=== PATIENT | female | born 1930 | race Caucasian/White ===

== ENCOUNTER 2017-11-02 11:50 | Observation (INO) | payer MEDICARE, BC ==
[2017-11-01 11:18] VITALS: BMI 22.4
[2017-11-02 13:09] LABS: #Eosinphils 0.1 thou/uL (0.0-0.7); #Lymphocytes 2.1 thou/uL (1.20-3.40); #Neutrophils 5.4 thou/uL (1.40-6.50); %Basophils 0.5 % (0.0-1.0); %Eosinophils 0.8 % (0.0-10.0); %Lymphocytes 24.3 % (21.0-51.0); %Monocytes 11.7 % (0.0-10.0); %Neutrophils 62.7 % (42.0-75.0); Mean Corpuscular HGB CONC 32.5 g/dL (32.0-36.0); Mean Corpuscular Hemoglobin 29.4 pg (27.0-31.0); Mean Corpuscular Volume 90.4 fl (81.0-99.0); Mean Platelet Volume 6.8 fL (7.4-10.4); Platelet Count 296 thou/uL (130-400); RBC Distribution Width 15.4 % (11.5-14.5); Red Blood Cell (RBC) Count 4.09 mill/uL (4.20-5.40); White Blood Cell (WBC) Count 8.5 thou/uL (4.8-10.8)
[2017-11-02 13:17] LABS: INR-International Normal Ratio 1.1; PTT 23.1 SEC (22.9-36.1); Prothrombin Time 13.9 SEC (12.0-14.7)
--- NOTE | 2017-11-02 13:24 | RAD ---
PORTABLE CHEST ONE VIEW: Date: 11-02-17 Time: 12:46 p.m. History: Chest pain. FINDINGS: There are changes of median sternotomy. The heart size is normal. The aorta is tortuous. The lungs ar e expanded without focal areas of consolidation, pneumothorax, or pleural effusions. There are old ri ght sided rib fractures. IMPRESSION: No radiographic evidence of acute cardiopulmonary process. POS: [facility]
[2017-11-02 13:46] LABS: Anion Gap 13 mmol/L (10-20); BUN (Urea Nitrogen) 17 mg/dL (9.8-20.1); Calc. Creatinine Clearance 44 mL/min (70-130); Calcium 9.7 mg/dL (7.8-10.44); Carbon Dioxide 27 mmol/L (23-31); Chloride 103 mmol/L (98-107); Estimated GFR-MDRD 55; Glucose 110 mg/dL (83-110); Potassium 4.4 mmol/L (3.5-5.1); Sodium 139 mmol/L (136-145)
[2017-11-02] MEDS ORDERED: CEFAZOLIN/Water 2 GM/20 ML SYRINGE ONE (13:48)
[2017-11-02] MEDS ORDERED: Fentanyl 250 MCG/5 ML VIAL ONE ×2 (13:56→17:29)
[2017-11-02] MEDS ORDERED: Ondansetron HCl/PF 4 MG/2 ML Vial ONE ×2 (13:57→17:11)
[2017-11-02] MEDS ORDERED: Bupivacaine/Epinephrine 0.25% 30 ML VIAL ONE (14:44)
[2017-11-02] MEDS ORDERED: Lidocaine 1% PF 5 ML VIAL ONE (17:11)
[2017-11-02] MEDS ORDERED: Glycopyrrolate 0.2 MG/ML 5 ML SYRINGE ONE (17:11)
[2017-11-02] MEDS ORDERED: Dexamethasone 20 MG/5 ML VIAL ONE (17:11)
[2017-11-02] MEDS ORDERED: Propofol 200 MG/20 ML VIAL ONE (17:11)
--- NOTE | 2017-11-02 17:43 | RAD ---
LEFT ELBOW TWO VIEWS INTRAOPERATIVE FLUOROSCOPY 11/02/17 HISTORY: Fracture. FINDINGS/IMPRESSION: Intraoperative fluoroscopy was provided for internal fixation as performed by Dr. De La Cruz. Spot fluor oscopic images show posterior compression plate and multiple screws to transfix the olecranon, in amaya tomic alignment. Fluoro time equals 45 seconds. POS: [facility]
--- NOTE | 2017-11-02 18:00 | OP ---
DATE OF PROCEDURE: 11/02/2017 PREOPERATIVE DIAGNOSIS: Left displaced olecranon fracture. POSTOPERATIVE DIAGNOSIS: Left displaced olecranon fracture. PROCEDURE: Open reduction internal fixation of left olecranon fracture. SURGEON: Matthew De La Cruz MD ANESTHESIA: General. TOURNIQUET TIME: 120 minutes at 250 mmHg. ESTIMATED BLOOD LOSS: 100 mL DRAINS: None. SPECIMENS: None. COMPLICATIONS: None. OPERATIVE INDICATIONS: The patient is a pleasant 87-year-old female who sustained a ground level fal l at home onto her elbow. She had a displaced comminuted intra-articular olecranon fracture on the l eft side. Risks and benefits were reviewed in detail with the patient and today which includ ed, but not limited to, continued pain, wound complications, infection, nonunion, malunion or implant failure. Written consent was obtained. DESCRIPTION OF PROCEDURE: The patient's left upper extremity was marked in the preoperative holding area. She was transferred to the operative suite in a supine position where general anesthesia was i nduced. She was transitioned to a right lateral decubitus position with assistance of a beanbag. Ax illary roll was placed and all bony prominences were well padded. We utilized on elevated arm hills for her left arm throughout the case. Her arm was placed into an upper arm tourniquet and was prepr epped with alcohol swabs. Left upper extremity was then prepped and draped in the usual sterile fash ion. After application of Esmarch dressing, tourniquet was insufflated. A longitudinal incision was made on the posterior aspect of her left arm extending from just proximal to her elbow to 6 cm distal. The incision curved radially around the tip of the olecranon. Full ickness skin flaps were developed and elevated in the medial and lateral direction maintaining carefu l hemostasis. We then manually palpated the fracture site distracted through this removing all loose debris and remaining hematoma. We then elevated the fascia distally extraperiosteally off the ulna. Once the fracture site had been completely cleaned and irrigated, we then manually reduced the frac ture with the arm in near extension and placed 2 K wires from proximal to distal, for fixation. Next , we split the triceps in the center of its insertion in order to fully seat our olecranon plate. Th is was then fully seated and held in place with K wires. Provisional fixation was utilized using one distal 3.5 mm screw and a proximal 2.7 mm locking screw. We then utilized intraoperative fluoroscop y in AP, oblique, and lateral views to confirm our reduction as well as concentric nature of the join t surface. There were several less than 3 x 3 mm bony fragments removed some with articular cartilag e from the fracture site. In order to obtain an anatomic reduction posteriorly, there was gapping at the fracture site due to the removed comminution. The remaining proximal locking holes were then fi lled followed by the distal cortical screws. The arm was placed through a full range of motion witho ut any displacement at the fracture site or any intra-articular disruption. Final x-rays were obtain ed. The wound was then copiously irrigated with sterile saline. The triceps fascia was then closed over the proximal portion of the plate. The skin was then closed meticulously in layered fashion wit h 2-0 Vicryl and interrupted 3-0 nylon sutures. A 17 mL of Marcaine 0.25% with epinephrine were inje cted subcutaneously throughout the incision. Xeroform, dry dressings and a posterior splint with the arm at 90 degrees were then applied. General anesthesia was removed, and she was transported to [facility] in good condition. POSTOPERATIVE PLAN: The patient will be nonweightbearing left upper extremity. She will be in the s plint for 2 weeks followed by suture removal and progressive range of motion. She was discharged on Tylenol #3 and Zofran.
[2017-11-02] MEDS ORDERED: Acetaminophen/Codeine 30-300mg Tablet PO PRN (20:44)
[2017-11-02] MEDS ORDERED: Ondansetron ODT 4 MG TAB PO PRN (20:45)
[2017-11-02] MEDS ORDERED: Ondansetron ODT 8 MG TAB PO PRN (20:46)
[2017-11-02] MEDS ORDERED: Morphine 2 MG/ML SYRINGE SLOW IVP PRN ×2 (20:48)
[2017-11-02] MEDS: Lactated Ringer's 1,000 ML IV SCH (21:12)
[2017-11-02] MEDS ORDERED: CEFAZOLIN/Water 2 GM/20 ML SYRINGE SLOW IVP SCH (22:00)
[2017-11-03] MEDS: Acetaminophen/Codeine 30-300mg Tablet PO PRN ×2 (01:11→08:00)
[2017-11-03] MEDS: Lactated Ringer's 1,000 ML IV SCH (05:49)
[2017-11-03 07:22] VITALS: BP 141/67; TEMP 98.4
[2017-11-03] MEDS ORDERED: Prevnar 13-Val Conj/PF 0.5 ML SYRINGE IM ONE (09:00)
[2017-11-03] MEDS ORDERED: FLU VACC TS2017-18 (>65YR) 0.5 ML SYRINGE IM ONE (09:00)
== END 2017-11-03 10:16 | disposition home or self-care (01) ==
LOC: SDC 11:50 → SURG A 18:33
PROVIDERS: ADMIT Orthopaedic Surgery; ATTEND Orthopaedic Surgery
PROC: 0PSL04Z Reposition Left Ulna with Internal Fixation Device, Open Approach (ICD-10-PCS; principal; 2017-11-02)
DX: S52.022A Displaced fracture of olecranon process without intraarticular extension of left ulna, initial encounter for closed fracture (principal); E78.5 Hyperlipidemia, unspecified; E03.9 Hypothyroidism, unspecified; I48.2 Chronic atrial fibrillation; I25.10 Atherosclerotic heart disease of native coronary artery without angina pectoris; W18.30XA Fall on same level, unspecified, initial encounter; Y92.009 Unspecified place in unspecified non-institutional (private) residence as the place of occurrence of the external cause; Z79.01 Long term (current) use of anticoagulants; Z79.899 Other long term (current) drug therapy; Z88.8 Allergy status to other drugs, medicaments and biological substances; Z95.1 Presence of aortocoronary bypass graft; Z90.49 Acquired absence of other specified parts of digestive tract
CPT/HCPCS: 24685; 71045; 73070; 76001; 80048; 85025; 85610; 85730; 96374; 96375; C1713 ×2; G0008; G0378; Q2036; 36415; 90471; 90682; J0131; J1100; J2001; J2270; J2405; J2704; J3010

== ENCOUNTER 2018-02-15 22:21 | Inpatient (IN) | payer MEDICARE, BC ==
[~2018-02-15 22:21] MED LIST: ISOVUE-370 76%-LOCM 1 ML ONE
[2018-02-15 23:04] LABS: Bilirubin Negative (Negative); Blood, Urine Moderate (Negative); Clarity CLEAR (Clear); Glucose, Urine (Dipstick) 250 mg/dL (Negative); Leukocyte Trace (Negative); Nitrite Negative (Negative); Protein, Urine (Dipstick) 30 mg/dL (Neg-Trace); Specific Gravity, Urine 1.012 (1.002-1.036); Urobilinogen 0.2 mg/dL (0.2-1.0)
[2018-02-15 23:05] LABS: Bacteria/HPF None Seen HPF (None Seen); Hyaline Casts/LPF 0-3 HYALINE CAST LPF (0-3 Hyaline); Squamous Epithelial 0-3 HPF (0-3); WBC/HPF 0-3 HPF (0-3)
--- NOTE | 2018-02-15 23:23 | RAD ---
RADIOGRAPH CHEST 1 VIEW: 02/15/18 HISTORY: 87-year-old female with generalized weakness. FINDINGS: There are no air space densities, pulmonary edema, pneumothorax, or cardiomegaly. The lateral costop hrenic angles are sharp. IMPRESSION: 1. No acute cardiopulmonary findings. 2. Signs of previous coronary artery bypass graft surgery is evidence for coronary atherosclerot ic disease. 3. Several old right upper lateral healed rib fracture deformities. spike [] POS: [facility]
--- NOTE | 2018-02-15 23:41 | CT ---
CT BRAIN NONCONTRAST: 02/15/18 HISTORY: 87-year-old female with altered mental status and generalized weakness. FINDINGS: There is no midline shift or any other mass effect. There is no evidence of acute intracranial hemor rhage, large cortical infarct, obstructive hydrocephalus, or extraaxial fluid collection. The calvar ium is intact. There is diffuse parenchymal volume loss. There are low attenuation areas in the whi te matter. These are nonspecific, but in a patient of this age, they are probably chronic ischemic w joo matter changes due to microvascular atherosclerosis. IMPRESSION: 1) No acute intracranial findings. 2) Involutional changes and chronic ischemic white matter changes. jn [] POS: [facility]
[2018-02-16 00:15] LABS: #Basophils 0.1 thou/uL (0.0-0.2); #Eosinphils 0.1 thou/uL (0.0-0.7); #Lymphocytes 2.6 thou/uL (1.20-3.40); #Monocytes 1.7 thou/uL (0.11-0.59); #Neutrophils 9.7 thou/uL (1.40-6.50); %Eosinophils 0.6 % (0.0-10.0); %Lymphocytes 18.1 % (21.0-51.0); %Monocytes 12.1 % (0.0-10.0); %Neutrophils 68.3 % (42.0-75.0); Hemoglobin 14.5 g/dL (12.0-16.0); Mean Corpuscular HGB CONC 33.2 g/dL (32.0-36.0); Mean Corpuscular Hemoglobin 28.7 pg (27.0-31.0); Mean Corpuscular Volume 86.2 fL (78.0-98.0); Mean Platelet Volume 6.3 fL (7.4-10.4); Platelet Count 270 thou/uL (130-400); RBC Distribution Width 14.6 % (11.5-14.5); Red Blood Cell (RBC) Count 5.05 mill/uL (4.20-5.40); White Blood Cell (WBC) Count 14.2 thou/uL (4.8-10.8)
[2018-02-16 00:36] LABS: ALT (SGPT) 9 U/L (8-55); AST (SGOT) 18 U/L (5-34); Albumin 3.8 g/dL (3.4-4.8); Alkaline Phosphatase 94 U/L (40-150); Anion Gap 11 mmol/L (10-20); BUN (Urea Nitrogen) 18 mg/dL (9.8-20.1); Bilirubin, Total 1.7 mg/dL (0.2-1.2); CK (CPK) 36 U/L (29-168); Calc. Creatinine Clearance 0 mL/min (70-130); Calcium 8.4 mg/dL (7.8-10.44); Carbon Dioxide 28 mmol/L (23-31); Chloride 84 mmol/L (98-107); Estimated GFR-MDRD 61; Globulin 3.3 g/dL (2.4-3.5); Glucose 163 mg/dL (83-110); Lipase 31 U/L (8-78); Protein, Total 7.1 g/dL (6.0-8.3)
[2018-02-16 00:38] LABS: CKMB 2.2 ng/mL (0-6.6); Troponin I Less than 0.010 ng/mL (< 0.028)
[2018-02-16 00:41] LABS: Sodium 119 mmol/L (136-145)
[2018-02-16] MEDS ORDERED: Labetalol HCl 100 MG/20 ML VIAL ONE (02:49)
[2018-02-16] MEDS ORDERED: Acetaminophen 650 MG Suppository PR PRN (04:38)
[2018-02-16] MEDS ORDERED: Bisacodyl 5 MG TAB PO PRN (04:38)
[2018-02-16] MEDS ORDERED: Acetaminophen 325 MG TAB PO PRN (04:38)
[2018-02-16] MEDS ORDERED: Ondansetron ODT 4 MG TAB PO PRN (04:40)
[2018-02-16 05:35] LABS: Anion Gap 13 mmol/L (10-20); Carbon Dioxide 27 mmol/L (23-31); Chloride 89 mmol/L (98-107); Potassium 3.9 mmol/L (3.5-5.1); Sodium 125 mmol/L (136-145)
[2018-02-16] MEDS: Levothyroxine Sodium 75 MCG TAB PO SCH (05:40)
[2018-02-16 05:49] VITALS: BMI 20.9
--- NOTE | 2018-02-16 06:47 | CT ---
CT ABDOMEN WITH CONTRAST CT PELVIS WITH CONTRAST: DATE: 02/15/2018 TIME: 11:41 p.m. HISTORY: An 87-year-old female with generalized abdominal pain. COMPARISON: None. FINDINGS: Heavy atherosclerotic calcification of the abdominal aorta and the iliac arteries without aneurysm. A few small and tiny bilateral renal calculi, ranging from 2 to 4 mm. No hydronephrosis. Renal pare nchymal defect at the right posterior lower pole, consistent with scar from previous insult. No jennifer r pathology identified involving the pancreas, the adrenals, the liver, the spleen, or the urinary bl adder. Pelvic relaxation. Atrophic uterus. No evidence of acute colonic diverticulitis. A 2.5 x 2 cm, thin-walled right adnexal cyst versus a fluid-filled loop of bowel. No free fluid or free air w ithin the abdominal cavity or pelvic cavity. No signs of acute colonic diverticulitis. No small bow el dilation. Appendix not identified. No consolidation or pleural effusion at the lung bases. IMPRESSION: 1. No acute findings. 2. Bilateral nephrolithiasis without obstructive uropathy. 3. Right renal lower pole parenchymal scar from prior insult. 4. Atherosclerosis of the abdominal aorta and the iliac arteries. 5. Pelvic relaxation. 6. Right adnexal possible cyst. Consider [address] with contrast. NANCY Vaughn POS: [facility]
[2018-02-16 07:58] LABS: Hemoglobin 14.5 g/dL (12.0-16.0); Platelet Count 266 thou/uL (130-400)
--- NOTE | 2018-02-16 09:18 | CON ---
DATE OF CONSULTATION: 02/16/2018 HISTORY OF PRESENT ILLNESS: Ms. Tamayo is an 87-year-old white female who was admitted for confusi on. Initial evaluation with the patient showed a normal CT scan of the head. This morning, she is more coherent. We are being consulted for her hyponatremia. At the ER, she was felt that she was volume depleted and she was given a liter of normal saline. With this maneuver, h er serum sodium was improved to the most recent value of 125. We are now being consulted for further management of the hyponatremia. REVIEW OF SYSTEMS: No chest pain. Positive for facial pain. No nausea, no vomiting, no diarrhea, d ecreased p.o. intake, decreased energy level. No diarrhea, no gross hematuria, no dysuria, no urinar y frequency, no abdominal pain, no headache. Occasional joint pains. No new skin rash, no fever or chills. PAST MEDICAL HISTORY: Includes, atrial fibrillation, coronary artery disease, hypothyroidism, recent diagnosis of shingles. PAST SURGICAL HISTORY: 1. Status post left elbow surgery. 2. Status post stent placement to the right leg. 3. Status post cardiac catheterization. 4. Status post CABG. 5. Status post tonsillectomy. 6. Status post colonoscopy. HOME MEDICATIONS: Include Valtrex 500 mg tab t.i.d., levothyroxine 75 mcg daily, Eliquis 2.5 mg b.i. d., metoprolol succinate 50 mg daily, Zofran p.r.n. ALLERGIES: PREDNISONE?, STATINS - adverse reaction. TRAUMA: Status post left elbow fracture. IMMUNIZATIONS: Up to date. HOSPITALIZATION: Please see past medical history. FAMILY HISTORY: Noncontributory. SOCIAL HISTORY: The patient is , 3 children, lives in [place]. Housewife. Education: High sc hool. Currently, no smoking, no alcohol intake, no IV drug abuse. Denies any blood transfusion ?. Sedentary lifestyle. PHYSICAL EXAMINATION: VITAL SIGNS: Blood pressure is 158/70, heart rate 92, respiratory rate 16, temperature 98.6, pulse o x 94%. GENERAL: Noted to be awake, alert, comfortable, not in overt distress. SKIN: Adequate turgor. HEENT: She has pinkish conjunctivae, anicteric sclerae. NECK: No neck mass, no carotid bruits, no JVD. CHEST: No deformities. LUNGS: Clear breath sounds. No wheezing, no crackles. HEART: Normal sinus rhythm. No murmur, no gallops or rubs. ABDOMEN: Globular, soft, nontender, no masses. EXTREMITIES: No edema, no deformities. NEUROLOGIC: Awake, oriented to 3 spheres. Moving all extremities. No tremors, no asterixis, no marci gage. LABORATORY DATA: Hemoglobin 14.5. On 02/16/2018 at 1:05 a.m., serum sodium was 119. On 02/16/2018 at 5:13 a.m., sodium 125, potassium 3.9, chloride 89, carbon dioxide 27, creatinine 0.93, GFR 57 mL p er minute. TSH 2.7. Urinalysis 02/15/2018, specific gravity 1.012. Protein is 30. Urine glucose 2 50, RBC 11-20, WBC 0-3. IMAGING: CT scan of the abdomen and pelvis on 02/15/2018 showed no acute findings - bilateral nephrolithiasis without obstruction, right renal lower pole parenchymal scar, finding on pe lvic relaxation. ASSESSMENT AND PLAN: Hyponatremia - with a history of decreased p.o. intake and decreased fluid inta ke, possibility that this could be hypovolemic hyponatremia remains. The thing that suggest hypovole lavonne hyponatremia is that she was given 1 liter of normal saline and the serum sodium improved from 11 9-125. For this reason, we will try to maintain her normal saline at 75 mL per hour. I am less inclined towards a dilutional hyponatremia due to the fact that the patient has decreased p .o. intake and my exam suggests that she is a bit on the dehydrated side. We will recheck another [facility] metabolic panel later today. I feel that the hyponatremia is most likely acute in nature suggest ed by her previous lab work. For the moment, we will complete the workup, we will be ordering uric acid, cortisol level and I will repeat the serum and urine osmolality. Thank you for the consult. We will continue to follow.
--- NOTE | 2018-02-16 09:19 | HP ---
PRIMARY CARE PROVIDER: Jhon Payton M.D. CHIEF COMPLAINT: Altered mental status. HISTORY OF PRESENT ILLNESS: Ms. Tamayo is a pleasant 87-year-old lady, who was seen at [facility] on 02/16/2018. She is accompanied by her daughter. Her is a retired neuro-lead supply worker, who used to work at [facility]. She developed zoster of the left eye a few days ago. She was started on valacyclovir and steroids fo r the last couple of days. She reportedly had poor oral intake including fluids and solids. She sta rted hallucinating yesterday and also complained of diffuse abdominal pain and nausea. She was there fore brought to the emergency room. She currently denies any abdominal pain. She reports feeling be tter. Her daughter also reports that her mentation has improved. REVIEW OF SYSTEMS: All other systems reviewed and found to be negative. PAST MEDICAL HISTORY: Atrial fibrillation, hypothyroidism, dyslipidemia, coronary artery disease. PAST SURGICAL HISTORY: Appendectomy, cholecystectomy, coronary artery bypass graft surgery, open red uction internal fixation of left olecranon fracture in 10/2017. FAMILY HISTORY: Significant for heart disease in both parents. SOCIAL HISTORY: No history of tobacco use, alcohol use or recreational drug use. ALLERGIES: STATINS. CURRENT MEDICATIONS: Apixaban 2.5 mg 2 times a day, Durezol 1 drop to left eye 2 times a day, gancic lovir ophthalmic gel 1 drop to left eye, Synthroid 75 mcg daily, Toprol-XL 50 mg every evening, Zofra n 4 mg every 6 hours as needed, and valacyclovir 500 mg 3 times a day. PHYSICAL EXAMINATION: GENERAL: On examination, Ms. Tamayo is sleepy, but arousable, not in acute distress. VITAL SIGNS: Blood pressure is 147/49, pulse 82, she is breathing at rate of 18, and saturating 95% on room air. She is afebrile. EYES: No scleral icterus. No conjunctival pallor. She is keeping her left eye shut. ENT: Moist mucosal membranes, no oropharyngeal erythema or exudates. NECK: Supple, nontender, trachea is midline. RESPIRATORY: Accessory muscles of breathing are not active. Chest wall movements are symmetric bila terally. Lungs are clear to auscultation without wheeze, rhonchi or crepitations. CARDIOVASCULAR: S1 and S2 are heard, regular. Peripheral pulses palpable. No pericardial rub. ABDOMEN: Soft, nontender, bowel sounds heard. MUSCULOSKELETAL: Power is 5/5 in all 4 extremities. NEUROLOGIC: She is keeping her left eye tightly shut. Otherwise, cranial nerves II-XII intact, deep tendon reflexes are 2+. LYMPHATIC: No cervical lymphadenopathy. SKIN: She has rash over the left eye and left side of the nose. PSYCHIATRIC: Normal mood, normal affect, patient is oriented to person, place, and time. LABORATORY DATA AND IMAGING: Ms. Tamayo's labs and investigations were reviewed. She had an elect rocardiogram, which showed normal sinus rhythm. She also had a chest x-ray, which did not show any p ulmonary infiltrates. She has leukocytosis with 14,200 white cells, of which 68% are neutrophils, no rmal hemoglobin, normal platelet count, decreased sodium of 119, normal potassium, normal creatinine, normal lactic acid, elevated total bilirubin of 1.7, otherwise unremarkable liver profile, normal li pase and normal troponin I. Urinalysis is positive for protein, glucose, blood, and trace leukocyte esterase. ASSESSMENT AND PLAN: Ms. Tamayo is a pleasant 87-year-old lady, who was seen at [facility] on 02/16/2018. Her problem list includes: 1. Acute encephalopathy: This appears to be improving, most likely secondary to hyponatremia, altho ugh a component from steroid use cannot be ruled out. She will be admitted to the hospital for furth er management. 2. Hyponatremia: Etiology is unclear. The patient's daughter reports that the patient has not been eating or drinking well. Clinically, she appears to be well hydrated. We will initiate workup incl uding serum and urine osmolalities and urine electrolytes. We will consult Nephrology Service for op inion and help with management. We will start patient on fluid restriction at less than 1500 mL per day and recheck her electrolytes. 3. Hypothyroidism: Continue Synthroid and check TSH level. 4. Herpes zoster infection: Continue her home medications including eyedrops and antivirals. 5. Atrial fibrillation: Continue apixaban and beta donovan. Many thanks for allowing me to participate in your patient's care. Please feel free to contact me wi th any questions or concerns. LEVEL OF RISK: Moderate. LEVEL OF COMPLEXITY: Moderate.
[2018-02-16] MEDS: Sodium Chloride 0.9% 1,000 ML IV SCH ×2 (09:35→22:06)
[2018-02-16] MEDS: valACYclovir 500 MG TAB PO SCH ×3 (09:37→22:06)
[2018-02-16] MEDS: Apixaban 2.5 MG TAB PO SCH ×2 (09:38→22:05)
[2018-02-16 11:57] LABS: Anion Gap 13 mmol/L (10-20); Carbon Dioxide 27 mmol/L (23-31); Chloride 88 mmol/L (98-107); Sodium 124 mmol/L (136-145)
--- NOTE | 2018-02-16 13:27 | PDOC.PN ---
- Subjective Encounter Start Date: 02/16/18 Encounter Start Time: 13:29 87 F with h/o A fib and recent shingles p/w altered mentation. H/o poor PO intake. Found to have hyponatremia. Started oin hydration with improvement. Nephrology on board. - Objective Resuscitation Status: Resuscitation Status DNR:Do Not Resuscitate Vital Signs & Weight: Vital Signs (12 hours) Temp Pulse Resp BP BP Pulse Ox 02/16/18 11:17 98.8 F 85 18 155/67 H 95 02/16/18 08:14 98.6 F 92 16 158/70 H 94 L 02/16/18 03:28 98.2 F 91 20 176/80 H 94 L Weight Weight 146 lb 3.2 oz I&O: 02/15/18 02/16/18 02/17/18 06:59 06:59 06:59 Intake Total 360 Balance 360 Result Diagrams: 02/16/18 07:51 02/16/18 11:09 Phys Exam - Physical Examination Constitutional: NAD HEENT: moist MMs, sclera anicteric Neck: supple, full ROM Respiratory: no wheezing, no rales, no rhonchi, clear to auscultation bilateral Cardiovascular: RRR, no significant murmur, no rub Gastrointestinal: soft, non-tender, no distention, positive bowel sounds Musculoskeletal: no edema, pulses present Neurological: non-focal Psychiatric: normal affect, A&O x 3 Deviation from normal: L orbital vesicles and crusting Dx/Plan (1) Hyponatremia Code(s): E87.1 - HYPO-OSMOLALITY AND HYPONATREMIA Status: Acute Comment: Likely acute hypovolemic. Mental status and serum sodium improving with NS. f/u cortisol and urine osmolality. (2) HLD (hyperlipidemia) Code(s): E78.5 - HYPERLIPIDEMIA, UNSPECIFIED Status: Chronic Qualifiers: Hyperlipidemia type: unspecified Qualified Code(s): E78.5 - Hyperlipidemia , unspecified (3) CAD (coronary artery disease) Code(s): I25.10 - ATHSCL HEART DISEASE OF [place] CORONARY ARTERY W/O ANG PCTRS Status: Chronic Qualifiers: Coronary Disease-Associated Artery/Lesion type: unspecified vessel or lesion type [place] vs. transplanted heart: [place] heart Associated angina: without angina Qualified Code(s): I25.10 - Atherosclerotic heart disease of [place] coronary artery without angina pectoris Comment: Stable, chest pain free (4) Hypothyroidism Code(s): E03.9 - HYPOTHYROIDISM, UNSPECIFIED Status: Chronic Qualifiers: Hypothyroidism type: unspecified Qualified Code(s): E03.9 - Hypothyroidism , unspecified Comment: Obtain TSH. Continue levothyroxine. (5) Atrial fibrillation Code(s): I48.91 - UNSPECIFIED ATRIAL FIBRILLATION Status: Chronic Comment: Rate controlled. Continue Eliquis and metoprolol. (6) Shingles Code(s): B02.9 - ZOSTER WITHOUT COMPLICATIONS Status: Acute - Plan cont current plan of care, plan discussed w/ family, out of bed/ambulate, DVT proph w/SCDs * . Review of Systems - Medications/Allergies Allergies/Adverse Reactions: Allergies Allergy/AdvReac Type Severity Reaction Status Date / Time prednisolone Allergy Verified 02/16/18 05:29 Tgorafr-Fht-Yky Reductase Allergy Verified 02/16/18 05:29 Inhibitor Medications: Current Medications Acetaminophen (Tylenol) 650 mg PO Q4H PRN PRN Reason: Headache/Fever or Pain Acetaminophen (Tylenol) [address] Q4H PRN PRN Reason: Headache/Fever or Pain Apixaban (Eliquis) 2.5 mg PO BID [facility] Last Admin: 02/16/18 09:38 Dose: Not Given Bisacodyl (Dulcolax) 10 mg PO DAILYPRN PRN PRN Reason: Constipation Sodium Chloride (Normal Saline 0.9%) 1,000 mls @ 75 mls/hr IV .[id number] [facility] Last Admin: 02/16/18 09:35 Dose: 1,000 mls Levothyroxine Sodium (Synthroid) 75 mcg PO 0600 [facility] Last Admin: 02/16/18 05:40 Dose: Not Given Metoprolol Succinate (Toprol Xl) 50 mg PO QPM [facility] Ondansetron HCl (Zofran Odt) 4 mg PO Q6H PRN PRN Reason: Nausea/Vomiting Difluprednate [ (Durezol] 1 Drop) 0 each L EYE BID [facility] Ganciclovir [Zirgan (0.15% Ophth Gel]) 0 each L EYE 5XD [facility] Sodium Chloride (Flush - Normal Saline) 10 ml IVF Q12HR [facility] Last Admin: 02/16/18 09:39 Dose: Not Given Sodium Chloride (Flush - Normal Saline) 10 ml IVF PRN PRN PRN Reason: Saline Flush Valacyclovir HCl (Valtrex) 500 mg PO TID [facility] Last Admin: 02/16/18 09:37 Dose: 500 mg
[2018-02-16 14:08] LABS: Creatinine, Urine 59.24 mg/dL (47-110); Potassium, Urine 23.1 mmol/L
[2018-02-16 17:02] LABS: Anion Gap 9 mmol/L (10-20); Carbon Dioxide 28 mmol/L (23-31); Chloride 92 mmol/L (98-107); Sodium 125 mmol/L (136-145)
[2018-02-16 17:04] LABS: Anion Gap 10 mmol/L (10-20); BUN (Urea Nitrogen) 17 mg/dL (9.8-20.1); Calc. Creatinine Clearance 47 mL/min (70-130); Calcium 8.4 mg/dL (7.8-10.44); Carbon Dioxide 28 mmol/L (23-31); Chloride 92 mmol/L (98-107); Estimated GFR-MDRD 63; Glucose 134 mg/dL (83-110); Potassium 3.9 mmol/L (3.5-5.1); Sodium 126 mmol/L (136-145)
[2018-02-16 19:27] LABS: Anion Gap 12 mmol/L (10-20); BUN (Urea Nitrogen) 18 mg/dL (9.8-20.1); Calc. Creatinine Clearance 41 mL/min (70-130); Calcium 8.4 mg/dL (7.8-10.44); Carbon Dioxide 26 mmol/L (23-31); Chloride 92 mmol/L (98-107); Estimated GFR-MDRD 53; Glucose 189 mg/dL (83-110); Potassium 3.9 mmol/L (3.5-5.1); Sodium 126 mmol/L (136-145)
[2018-02-16 23:18] LABS: Anion Gap 9 mmol/L (10-20); BUN (Urea Nitrogen) 20 mg/dL (9.8-20.1); Calc. Creatinine Clearance 44 mL/min (70-130); Calcium 8.1 mg/dL (7.8-10.44); Carbon Dioxide 27 mmol/L (23-31); Chloride 93 mmol/L (98-107); Estimated GFR-MDRD 58; Glucose 164 mg/dL (83-110); Potassium 3.8 mmol/L (3.5-5.1); Sodium 125 mmol/L (136-145)
[2018-02-17] MEDS: Levothyroxine Sodium 75 MCG TAB PO SCH ×2 (05:40→05:56)
[2018-02-17 05:54] LABS: ALT (SGPT) 8 U/L (8-55); AST (SGOT) 17 U/L (5-34); Albumin 3.5 g/dL (3.4-4.8); Alkaline Phosphatase 83 U/L (40-150); Anion Gap 9 mmol/L (10-20); BUN (Urea Nitrogen) 18 mg/dL (9.8-20.1); Bilirubin, Total 1.1 mg/dL (0.2-1.2); Calc. Creatinine Clearance 44 mL/min (70-130); Calcium 8.5 mg/dL (7.8-10.44); Carbon Dioxide 29 mmol/L (23-31); Chloride 93 mmol/L (98-107); Estimated GFR-MDRD 60; Globulin 3.1 g/dL (2.4-3.5); Glucose 136 mg/dL (83-110); Potassium 4.1 mmol/L (3.5-5.1); Protein, Total 6.6 g/dL (6.0-8.3); Sodium 127 mmol/L (136-145)
[2018-02-17 06:19] LABS: #Basophils 0.1 thou/uL (0.0-0.2); #Eosinphils 0.3 thou/uL (0.0-0.7); #Lymphocytes 3.4 thou/uL (1.20-3.40); #Monocytes 1.8 thou/uL (0.11-0.59); #Neutrophils 6.8 thou/uL (1.40-6.50); %Basophils 0.7 % (0.0-1.0); %Eosinophils 2.2 % (0.0-10.0); %Lymphocytes 27.4 % (21.0-51.0); %Monocytes 14.7 % (0.0-10.0); %Neutrophils 54.9 % (42.0-75.0); Hemoglobin 13.9 g/dL (12.0-16.0); Mean Corpuscular HGB CONC 33.3 g/dL (32.0-36.0); Mean Corpuscular Hemoglobin 29.5 pg (27.0-31.0); Mean Corpuscular Volume 88.7 fL (78.0-98.0); Mean Platelet Volume 6.9 fL (7.4-10.4); Platelet Count 250 thou/uL (130-400); RBC Distribution Width 15.1 % (11.5-14.5); White Blood Cell (WBC) Count 12.4 thou/uL (4.8-10.8)
--- NOTE | 2018-02-17 08:38 | PRG ---
DATE OF SERVICE: 02/17/2018 SERVICE: Renal Medicine. SUBJECTIVE: Ms. Tamayo is an 87-year-old white female who was seen by the Renal Service for her ac lopez hyponatremia. At that time, serum sodium improved with volume repletion. For this reason, we fe lt that she may simply be volume depleted and has hypovolemic hyponatremia. She was maintained on no rmal saline at 75 mL per hour. Serum sodium is slightly improved from yesterday. She is now current ly at 127. I did review her laboratories and her urine chemistries did not suggest volume depletion. It is possible that this patient may have an underlying euvolemic hyponatremia/SIADH. For the mome nt, continue gentle volume repletion - maintenance dose of normal saline at 75 mL per hour. Continue strict free water restriction. There is no indication at the present time for any hypertonic saline with this patient. She is mentating well this morning. She voices no new complaints. She denies a ny chest pain or shortness of breath. PHYSICAL EXAMINATION: VITAL SIGNS: Blood pressure is noted at 177/93, heart rate 79, respiratory rate 18, temperature 98.2 , pulse ox 94%. GENERAL: Noted to be awake, alert, supine, comfortable, not in overt distress. SKIN: Adequate turgor. HEENT: She has a pinkish conjunctivae, anicteric sclerae. NECK: No neck mass, no carotid bruits, no JVD. CHEST: No deformities. LUNGS: Clear breath sounds. HEART: Normal sinus rhythm. No murmur, no gallops, no rubs. ABDOMEN: Globular, soft, nontender, no masses. EXTREMITIES: No edema, no deformities. IMAGING: CT scan of the abdomen and pelvis on 02/15/2018 showed bilateral nephrolithiasis. LABORATORY DATA: Of 02/17/2018, sodium 127, potassium 4.1, chloride 93, carbon dioxide 29, BUN 18, c reatinine 0.89, glucose 136, AST 17, ALT 8, albumin 3.5. Serum osmolality was noted at 270. Uric ac id is 3.8. Cortisol 15.9. Urine osmolality was 378, urine creatinine 59, urine sodium 34. ASSESSMENT AND PLAN: Hyponatremia - initially felt that this was secondary to hypovolemic hyponatrem ia. However, serum sodium has not normalized. Currently on maintenance normal saline. The possibil ity also of underlying chronic hyponatremia from the possibility of an acute hyponatremia secondary t o a possible euvolemic hyponatremia/syndrome of inappropriate antidiuretic hormone secretion also rem ains. Continue strict free water restriction. There is no indication for any hypertonic saline at t he present time with this patient. Continue with current management. Overall, agree with current ma nagement. We will be rechecking another base met in a.m. Case discussed with the patient's and daughter.
[2018-02-17] MEDS: GANCICLOVIR L EYE SCH ×5 (09:06→21:59)
[2018-02-17] MEDS: Difluprednate [Durezol] 1 DROP L EYE SCH ×4 (09:06→22:00)
[2018-02-17] MEDS: valACYclovir 500 MG TAB PO SCH ×3 (09:09→22:00)
[2018-02-17] MEDS: Apixaban 2.5 MG TAB PO SCH ×2 (09:10→21:59)
[2018-02-17] MEDS: Sodium Chloride 0.9% 1,000 ML IV SCH (12:22)
--- NOTE | 2018-02-17 12:30 | PDOC.PN ---
- Subjective Encounter Start Date: 02/17/18 Encounter Start Time: 12:28 87 F with h/o A fib and recent shingles p/w altered mentation. H/o poor PO intake. Found to have hyponatremia- ? SiADH. Initially started on hydration with mild improvement. However, nephrology reviewed and recommended fluid restriction as the hyponatremia might be 2/2 SiADH. She has no complaints, is now asymptomatic. No acute events overnight. - Objective Resuscitation Status: Resuscitation Status DNR:Do Not Resuscitate MAR Reviewed: Yes Vital Signs & Weight: Vital Signs (12 hours) Temp Pulse Resp BP Pulse Ox 02/17/18 12:24 83 18 166/72 H 02/17/18 08:45 98.3 F 80 18 95 02/17/18 08:00 80 18 137/63 94 L 02/17/18 04:00 98.3 F 79 18 177/93 H 94 L Weight Admit Weight 146 lb Weight 142 lb 1.6 oz I&O: 02/16/18 02/17/18 02/18/18 06:59 06:59 06:59 Intake Total 1938 Output Total 100 Balance 1838 Result Diagrams: 02/17/18 05:13 02/17/18 05:13 Phys Exam - Physical Examination Constitutional: NAD HEENT: moist MMs, sclera anicteric Crusting around L orbit Neck: supple, full ROM Respiratory: no wheezing, no rales, no rhonchi, clear to auscultation bilateral Cardiovascular: RRR, no significant murmur, no rub Gastrointestinal: soft, non-tender, no distention, positive bowel sounds Musculoskeletal: no edema, pulses present Neurological: non-focal, moves all 4 limbs Psychiatric: normal affect, A&O x 3 Skin: no rash, normal turgor Dx/Plan (1) Hyponatremia Code(s): E87.1 - HYPO-OSMOLALITY AND HYPONATREMIA Status: Acute Comment: Mental status and serum sodium improving with NS. Serum OSm low and urine osmolality normal. (2) HLD (hyperlipidemia) Code(s): E78.5 - HYPERLIPIDEMIA, UNSPECIFIED Status: Chronic Qualifiers: Hyperlipidemia type: unspecified Qualified Code(s): E78.5 - Hyperlipidemia , unspecified (3) CAD (coronary artery disease) Code(s): I25.10 - ATHSCL HEART DISEASE OF [place] CORONARY ARTERY W/O ANG PCTRS Status: Chronic Qualifiers: Coronary Disease-Associated Artery/Lesion type: unspecified vessel or lesion type [place] vs. transplanted heart: [place] heart Associated angina: without angina Qualified Code(s): I25.10 - Atherosclerotic heart disease of [place] coronary artery without angina pectoris Comment: Stable, chest pain free (4) Hypothyroidism Code(s): E03.9 - HYPOTHYROIDISM, UNSPECIFIED Status: Chronic Qualifiers: Hypothyroidism type: unspecified Qualified Code(s): E03.9 - Hypothyroidism , unspecified Comment: Obtain TSH. Continue levothyroxine. (5) Atrial fibrillation Code(s): I48.91 - UNSPECIFIED ATRIAL FIBRILLATION Status: Chronic Comment: Rate controlled. Continue Eliquis and metoprolol. (6) Shingles Code(s): B02.9 - ZOSTER WITHOUT COMPLICATIONS Status: Acute Qualifiers: Herpes zoster complications: with ocular involvement Herpes zoster ocular complication detail: unspecified herpes zoster eye disease Qualified Code(s): B02.30 - Zoster ocular disease, unspecified - Plan cont current plan of care, plan discussed w/ family, out of bed/ambulate * . Review of Systems - Medications/Allergies Allergies/Adverse Reactions: Allergies Allergy/AdvReac Type Severity Reaction Status Date / Time prednisolone Allergy Verified 02/16/18 05:29 Iaobrqx-Nun-Tcn Reductase Allergy Verified 02/16/18 05:29 Inhibitor Medications: Current Medications Acetaminophen (Tylenol) 650 mg PO Q4H PRN PRN Reason: Headache/Fever or Pain Acetaminophen (Tylenol) 650 mg SD Q4H PRN PRN Reason: Headache/Fever or Pain Apixaban (Eliquis) 2.5 mg PO BID [facility] Last Admin: 02/17/18 09:10 Dose: 2.5 mg Bisacodyl (Dulcolax) 10 mg PO DAILYPRN PRN PRN Reason: Constipation Levothyroxine Sodium (Synthroid) 75 mcg PO 0600 [facility] Last Admin: 02/17/18 05:56 Dose: Not Given Metoprolol Succinate (Toprol Xl) 50 mg PO QPM [facility] Last Admin: 02/16/18 22:05 Dose: 50 mg Ondansetron HCl (Zofran Odt) 4 mg PO Q6H PRN PRN Reason: Nausea/Vomiting Difluprednate [ (Durezol] 1 Drop) 0 each L EYE BID [facility] Last Admin: 02/17/18 09:12 Dose: 1 each Ganciclovir [Zirgan (0.15% Ophth Gel]) 0 each L EYE 5XD [facility] Last Admin: 02/17/18 12:21 Dose: 1 each Sodium Chloride (Flush - Normal Saline) 10 ml IVF Q12HR [facility] Last Admin: 02/17/18 09:47 Dose: Not Given Sodium Chloride (Flush - Normal Saline) 10 ml IVF PRN PRN PRN Reason: Saline Flush Valacyclovir HCl (Valtrex) 500 mg PO TID [facility] Last Admin: 02/17/18 09:09 Dose: 500 mg
[2018-02-17 13:12] LABS: Anion Gap 10 mmol/L (10-20); BUN (Urea Nitrogen) 17 mg/dL (9.8-20.1); Calc. Creatinine Clearance 48 mL/min (70-130); Calcium 8.2 mg/dL (7.8-10.44); Carbon Dioxide 28 mmol/L (23-31); Chloride 94 mmol/L (98-107); Estimated GFR-MDRD 67; Glucose 130 mg/dL (83-110); Potassium 3.7 mmol/L (3.5-5.1); Sodium 128 mmol/L (136-145)
[2018-02-18] MEDS: GANCICLOVIR L EYE SCH ×3 (00:15→13:13)
[2018-02-18] MEDS: Levothyroxine Sodium 75 MCG TAB PO SCH (05:27)
[2018-02-18 05:37] LABS: Anion Gap 9 mmol/L (10-20); BUN (Urea Nitrogen) 16 mg/dL (9.8-20.1); Calc. Creatinine Clearance 51 mL/min (70-130); Calcium 8.6 mg/dL (7.8-10.44); Carbon Dioxide 29 mmol/L (23-31); Chloride 94 mmol/L (98-107); Estimated GFR-MDRD 72; Glucose 143 mg/dL (83-110); Potassium 3.9 mmol/L (3.5-5.1); Sodium 128 mmol/L (136-145)
[2018-02-18 07:10] LABS: Platelet Count 260 thou/uL (130-400)
--- NOTE | 2018-02-18 08:49 | PRG ---
DATE OF SERVICE: 02/18/2018 SERVICE: Renal Medicine. SUBJECTIVE: Ms. Tamayo is an 87-year-old white female who was seen by the Renal Service for the hy ponatremia. Initially, we felt she may have hypovolemic hyponatremia. She responded with volume rep letion. However, serum sodium was not really normalized. The most recent serum sodium is noted at 1 28. The possibility that she may have an underlying euvolemic hyponatremia/SIADH remains. The plan is to simply place her on a free water restriction. Please note that the hyponatremia is most likely acute in nature. Please note, normal saline has already been discontinued. This morning, she voices no new complaints . No chest pain or shortness of breath. PHYSICAL EXAMINATION: VITAL SIGNS: Blood pressure is 168/82, heart rate 75, respiratory rate 17, pulse ox 95%. GENERAL: Awake, alert, comfortable, not in distress. SKIN: Adequate turgor. HEENT: She has pinkish conjunctivae, anicteric sclerae. NECK: No neck mass, no carotid bruits, no JVD. CHEST: No deformities. LUNGS: Clear breath sounds, no wheezing, no crackles. HEART: Normal sinus rhythm. No murmur, no gallops or rubs. ABDOMEN: Globular, soft, nontender. No masses. EXTREMITIES: No edema, no deformities. MEDICATIONS: Of 02/18/2018 was reviewed. LABORATORY DATA: Of 02/18/2018, sodium was 128, potassium 3.9, chloride is 94, carbon dioxide 29, BU N 16, creatinine 0.76, glucose 143, calcium 8.6. ASSESSMENT AND PLAN: 1. Hyponatremia - superimposed hypovolemic hyponatremia on top of a possible syndrome of inappropria te antidiuretic hormone secretion. Continue free water restriction. The patient is mentating well. I do not see any indication for any hypertonic saline. Continue strict free water restriction of 1. 5 liters per day. I have not excluded in giving her a 1 time dose of conivaptan to help normalize th e serum sodium. 2. Mental status change, resolved - most likely metabolic in etiology. Imaging of the brain was ess entially negative. Overall, agree with current management. Agree to hold off normal saline. Recheck base met in a.m.
[2018-02-18] MEDS: Difluprednate [Durezol] 1 DROP L EYE SCH (09:04)
[2018-02-18] MEDS: Apixaban 2.5 MG TAB PO SCH (09:04)
[2018-02-18] MEDS: valACYclovir 500 MG TAB PO SCH (09:04)
[2018-02-18] MEDS ORDERED: Polyethylene Glycol 3350 17 GM Packet PO PRN (10:44)
[2018-02-18] MEDS ORDERED: Polyethylene Glycol 3350 17 GM Packet PO SCH (10:45)
[2018-02-18 13:15] VITALS: BP 173/79; TEMP 97.4
--- NOTE | 2018-02-18 20:51 | DIS ---
DATE OF ADMISSION: 02/16/2018 DATE OF DISCHARGE: 02/18/2018 DISCHARGE DIAGNOSES: Hyponatremia, acute encephalopathy, hyperlipidemia, coronary artery disease, hy pothyroidism, atrial fibrillation, paroxysmal and herpes zoster. HISTORY OF PRESENT ILLNESS/HOSPITAL COURSE: Ms. Tamayo is a pleasant 87-year-old lady who was brou ght to the emergency room after an episode of confusion and hallucination. She reports a history of zoster in her left eye few days ago. She was started on valacyclovir and steroids for a few days. S he has reportedly also had very poor oral intake. The day before presenting, she was started halluci nating and confused with diffuse abdominal pain and nausea. She was thus brought to the emergency ro om. At the emergency room, she was found to have hyponatremia of 119. Physical examination reveals no focal deficits, but a rash in face goes about the left naris and arou nd the left orbit. She was initially started on normal saline and a chest x-ray showed no infiltrate s or any other abnormalities. She had leukocytosis with white count of 14,200 of which 6%-8% were ne utrophils, normal hemoglobin and normal platelet count. She also had an elevated total bilirubin of 1.7, otherwise unremarkable liver profile. With hydration, her mental status was improved. Her seru m sodium also improved to 125 and then to 128 before discharge. 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 Recom mended water restriction of 1.5 liters per day. Since the patient's mental status had improved and b ack to baseline, the patient was able to ambulate. She was deemed stable for discharge. She was dis charged with home health services including physical therapy. For her atrial fibrillation, she was c ontinued on metoprolol and apixaban. For her hyperlipidemia, CAD and hypothyroidism, she was also co ntinued on her home medications. In addition, valacyclovir was continued for her Herpes zoster. She was discharged without incident. DISCHARGE MEDICATIONS: Metoprolol succinate 50 mg every evening, valacyclovir 500 mg 3 times daily, ondansetron 4 mg every 6 hours as needed for nausea and vomiting, levothyroxine 75 mcg daily, apixaba n 2.5 mg b.i.d., ganciclovir 1 drop in the left eye 5 times a day, Durezol 1 drop in each eye twice a day. PHYSICAL EXAMINATION: She was examined on the day of discharge. VITAL SIGNS: Blood pressure 145/70, oxygen saturation 96% on room air, respiratory rate 18, pulse ra te 80, temperature 97.1 degree Fahrenheit. GENERAL: Not in acute distress. She was sitting comfortably in bed. HEENT: Moist mucous membranes. Sclerae are anicteric. She has some crusting around her left eyelid . NECK: Supple, full range of movement. RESPIRATORY: No wheezes, rales or rhonchi. Clear to auscultation bilaterally. CARDIOVASCULAR: Regular rate and rhythm. S1, S2 with no significant murmurs, rubs or gallops. ABDOMEN: Soft, nontender, nondistended, positive bowel sounds. EXTREMITIES: No edema. Pulses present. NEUROLOGIC: Nonfocal, moves all limbs. PSYCHIATRIC: Normal mood and affect. Alert and oriented to time, place, and person. SKIN: No rash. Normal turgor. LABORATORY DATA: WBC 12.4, hemoglobin 13.0, platelet count 250. Sodium 128, potassium 3.9, chloride 94, carbon dioxide 29, anion gap 9, BUN 16, creatinine 0.76, glucose 143, calcium 8.6. IMAGING: Chest x-ray showed no acute abnormalities. Brain CT showed no acute changes, but showed in volutional changes and chronic ischemic white matter changes. Abdomen/pelvis CT showed no acute find ing showed some bilateral nephrolithiasis without obstructive uropathy, right renal lower lobe parenc hymal scar from prior insult. Atherosclerosis of the abdominal aorta and iliac arteries, pelvic rela xation, possible right adnexa possible cyst consider a 6-month followup with CT with contrast. CONSULT: Nephrology. CONDITION AT DISCHARGE: Stable and improved. PROCEDURES: None. DIET: Heart healthy, low sodium K. CARE GOALS: To follow up with primary care physician within the next 5 days for repeat labs. ACTIVITY: Resume as tolerated as directed by PT/OT. Discharge time 65 minutes including chart review and documentation.
--- NOTE | 2018-02-19 15:38 | EKG ---
Test Reason : WEAKNESS Blood Pressure : / mmHG Vent. Rate : 092 BPM Atrial Rate : 088 BPM P-R Int : 000 ms QRS Dur : 106 ms QT Int : 394 ms P-R-T Axes : 000 -54 083 degrees QTc Int : 487 ms Undetermined rhythm Left axis deviation Incomplete right bundle branch block Inferior infarct , age undetermined Anterior infarct , age undetermined Abnormal ECG Confirmed by MIRELLA CADE M.D. ([id number]), makeup editor JOSE ANTONIO GOMES ([id number]) on 02/19/2018 3:38:26 PM Referred By: KRIS PIZARRO Confirmed By:MIRELLA CADE M.D.
== END 2018-02-18 14:09 | disposition home health service (06) | DRG 640 ==
LOC: ERS 22:21 → 2NO 02-16 01:09
PROVIDERS: ADMIT Internal Medicine; ATTEND Internal Medicine
DX: E87.1 Hypo-osmolality and hyponatremia (principal); G93.40 Encephalopathy, unspecified; B02.30 Zoster ocular disease, unspecified; E03.9 Hypothyroidism, unspecified; E78.5 Hyperlipidemia, unspecified; I25.10 Atherosclerotic heart disease of native coronary artery without angina pectoris; Z90.49 Acquired absence of other specified parts of digestive tract; Z95.1 Presence of aortocoronary bypass graft; I48.0 Paroxysmal atrial fibrillation; Z66 Do not resuscitate; I16.0 Hypertensive urgency
CPT/HCPCS: 36415; 70450; 71045; 74177; 80053; 81003; 81015; 82436; 82533; 82550; 82553; 82570; 83605; 83690; 83930; 83935; 84133; 84300; 84443; 84484; 84550; 85014; 85018; 85025; 85049; 87040; 87086; 93005; 96361; 96374; A4216; G8978-GP-CK; G8979-GP-CJ